=== PATIENT | female | born 1930 | race Caucasian/White ===

== ENCOUNTER 2020-10-13 10:30 | Emergency (ER) | payer OTHER ==
[~2020-10-13] VITALS: Ht 154.9 cm; Wt 61.2 kg
[2020-10-13] MEDS ORDERED: LEVO-T100 MCG PO (10:43)
[2020-10-13] MEDS ORDERED: ARICEPT10 M1 PO (10:43)
[2020-10-13] MEDS ORDERED: NORCO5 PO (12:41)
[2020-10-13 13:02] VITALS: BP 203/61
== END 2020-10-13 13:04 | disposition home or self-care (01) ==
LOC: M.ERS 10:30
DX: S32.028A Other fracture of second lumbar vertebra, initial encounter for closed fracture (principal); N83.201 Unspecified ovarian cyst, right side; E03.9 Hypothyroidism, unspecified; Z79.899 Other long term (current) drug therapy; W01.0XXA Fall on same level from slipping, tripping and stumbling without subsequent striking against object, initial encounter; Y93.E1 Activity, personal bathing and showering; Y92.89 Other specified places as the place of occurrence of the external cause; Y99.9 Unspecified external cause status

== ENCOUNTER → 2020-10-21 | Outpatient (CLI) | payer OTHER ==
[~2020-10-21] VITALS: Ht 154.9 cm; Wt 61.7 kg
[~2020-10-21] MED LIST: ALEVE220 M1 PO; ARICEPT10 M1 PO; CENTRAVITES 501 EAC1 PO; FISH OIL 1,001000 M3 PO; FOSAMAX 70 MG T70 MG PO; GARLIC OIL1000 MG PO; LEVO-T100 MCG PO; MEDROLDOSEPACK PO; NORCO5 PO; PERCOCET 7.5-31 EAC1 PO; PRINIVIL20 M1 PO; STOOL SOFTENER100 M1 PO; VITAMIN B-121000 MC2 SUBLING
== END ==
LOC: M.MRI 07:10
PROVIDERS: ATTEND Family Medicine
DX: M48.56XA Collapsed vertebra, not elsewhere classified, lumbar region, initial encounter for fracture (principal); M51.36 Other intervertebral disc degeneration, lumbar region; M48.061 Spinal stenosis, lumbar region without neurogenic claudication; M48.07 Spinal stenosis, lumbosacral region; X58.XXXD Exposure to other specified factors, subsequent encounter

== ENCOUNTER → 2020-10-30 | Outpatient (CLI) | payer OTHER | LOC: M.PC 08:24 | PROVIDERS: ATTEND Anesthesiology Pain Medicine | DX: S32.028D Other fracture of second lumbar vertebra, subsequent encounter for fracture with routine healing (principal); M19.90 Unspecified osteoarthritis, unspecified site; F32.9 Major depressive disorder, single episode, unspecified; E78.5 Hyperlipidemia, unspecified; I10 Essential (primary) hypertension; G47.00 Insomnia, unspecified; M54.42 Lumbago with sciatica, left side; N83.201 Unspecified ovarian cyst, right side; H91.90 Unspecified hearing loss, unspecified ear; X58.XXXD Exposure to other specified factors, subsequent encounter ==

== ENCOUNTER → 2020-11-27 | Outpatient (CLI) | payer OTHER | LOC: M.PC 08:21 | PROVIDERS: ATTEND Anesthesiology Pain Medicine | DX: M48.56XD Collapsed vertebra, not elsewhere classified, lumbar region, subsequent encounter for fracture with routine healing (principal); M19.90 Unspecified osteoarthritis, unspecified site; E78.5 Hyperlipidemia, unspecified; I10 Essential (primary) hypertension; G47.00 Insomnia, unspecified; M54.40 Lumbago with sciatica, unspecified side; N83.201 Unspecified ovarian cyst, right side; F32.9 Major depressive disorder, single episode, unspecified; X58.XXXD Exposure to other specified factors, subsequent encounter ==

== ENCOUNTER 2021-02-20 08:38 | Inpatient (IN) | payer OTHER ==
[~2021-02-20] VITALS: Ht 165.1 cm; Wt 55.9 kg
--- NOTE | ~2021-02-20 | CON ---
[address] [address] CONSULTATION Name: LISSETTE BURTON Claudia Room: [address] IN M.R.#: [id number] Admission: 02/20/21 Attend Phys: Nohelia Arora Discharge: 02/21/21 Date of : [birth year] Report #: [id number] THIS REPORT FOR: cc: Karla Moran Maggie M. DO [place], Roxane S. DO ~ DATE OF CONSULTATION: 02/21/2021 NEUROLOGY CONSULT HISTORY OF PRESENT ILLNESS: The patient is an 89-year-old female who came to the emergency room after an episode of staring out in space and generalized weakness. The patient had taken a shower and approximately 10 minutes later was putting her teeth in when she began to stare out and seemed generally weak. Her family grabbed her and laid her down. They did not check her blood pressure. Apparently, the patient has a history of dementia and is on donepezil 5 mg daily. Her daughter does not think the medication is helpful. Apparently, the patient has had an episode like this in the past and at that time was diagnosed with a urinary tract infection. Her daughter also states that her mother has a history of spinal stenosis, but her daughter is not sure where in the spine this is. Her mother has just come to live with her since 08/2020. PAST MEDICAL HISTORY: Hypothyroidism, hypertension, hyperlipidemia, arthritis, dementia. PAST SURGICAL HISTORY: Hysterectomy, rectocele repair x 2, rotator cuff repair, cholecystectomy. MEDICATIONS: At home, donepezil 5 mg daily, levothyroxine daily, multivitamin daily, fish oil daily, B12 daily, Colace 100 mg daily, lisinopril 20 mg daily, terbinafine 250 mg daily, oxycodone p.r.n., fluoxetine 20 mg daily. ALLERGIES: None. VITAL SIGNS: Temperature 36.9, pulse rate 60, respiratory rate 16, blood pressure 148/60, bedside pulse oximetry 96% on room air. LABORATORY DATA: Hematology: White blood cell count 6.8, hemoglobin 12.8, hematocrit 39.4, MCV 86.1, platelet count 323,000. Urinalysis: Nitrite positive, leukocyte esterase positive, many bacteria seen. Chemistry: Sodium 135, potassium 4.3, chloride 101, carbon dioxide 25, BUN 18, creatinine 0.8, GFR 68, glucose 101, calcium 8.7, total bilirubin 0.4, AST 16, ALT 23, alkaline phosphatase 58, total protein 7.6, albumin 3.8. Triglycerides 74, cholesterol 307, LDL cholesterol 106, HDL cholesterol 87. TSH 6.288, free T4 1.04[place] [address] CONSULTATION Name: LISSETTE BURTON Room: [address] IN [facility]#: [id number] Admission: 02/20/21 Attend Phys: Nohelia Arora Discharge: 02/21/21 Date of : [birth year] Report #: [id number] IMAGING: CT scan of the head demonstrates age-related findings including symmetric cerebral and cerebellar volume loss, atherosclerosis and chronic central white matter vascular disease. NEUROLOGIC: The patient thought it was 2020. She did not know where she was. I asked her how long she has been in the hospital because she remarked to me that she had "been there so long," but could not tell me. Cranial nerves 2-12 are grossly intact. Motor exam demonstrates symmetrical strength in the arms and legs. The patient was able to lift each leg high off the bed in a seated position. Reflexes trace. Plantar responses flexor. No dysmetria with [id number]. IMPRESSION: This patient has a history of dementia, most likely she has Alzheimer's disease, but she could also have microvascular dementia as well. I did recommend to her daughter that the dose of donepezil be increased to 10 mg daily, but I also think it would benefit the patient to see a neurologist and they would prefer to see someone locally, so I would recommend Dr. Roman. I explained to her daughter that whenever her mother has urinary tract infection, she may have these odd what seems like odd symptoms such as not being able to speak or being generally weak. I explained to her that her mother has a urinary tract infection now. Also, the patient has a history of spinal stenosis, but the patient has excellent strength in her legs. Again, I think it would be important for the patient to follow up with a neurologist as an outpatient to find out where the stenosis is and have it further evaluated. The electroencephalogram shows no evidence of seizure activity, not only that but this episode is not consistent with a seizure. I thank you for your kind referral. By: [id number] Hays DO /nt
[2021-02-20 08:39] VITALS: BP 163/58
[2021-02-20 09:00] LABS: ABSOLUTE EOSINOPHILS 0.2 thou/uL (0.0-0.7); ABSOLUTE LYMPHOCYTES 1.6 thou/uL (0.8-5.3); ABSOLUTE MONOCYTES 0.5 thou/uL (0.0-1.2); ABSOLUTE NEUTROPHILS 4.1 thou/uL (1.6-8.1); BASOPHILS 0.5 %; HEMATOCRIT 40.7 % (37.0-47.0); HEMOGLOBIN 13.6 gm/dL (12.0-15.0); LYMPHOCYTES 24.5 %; MCH 28.3 pg (26.0-34.0); MCHC 33.3 g/dL (28.0-37.0); MCV 85.1 fL (80.0-100.0); MONOCYTES 7.9 %; MPV 7.3 fl. (7.2-11.1); NUCLEATED RBCS 0 /100WBC; PLATELET COUNT* 334 thou/uL (150-400); POLYS 64.1 %; RBC 4.79 mil/uL (4.20-5.00); RDW-CV 16.4 % (10.5-14.5); WBC 6.4 thou/uL (4.0-11.0)
[2021-02-20 09:09] LABS: URINE BILIRUBIN NEGATIVE (Negative); URINE BLOOD NEGATIVE (Negative); URINE CLARITY CLEAR; URINE COLOR YELLOW; URINE GLUCOSE-RANDOM NEGATIVE (Negative); URINE KETONES NEGATIVE (Negative); URINE LEUKOCYTES-REFLEX TRACE (Negative); URINE PROTEIN NEGATIVE (Negative); URINE SPECIFIC GRAVITY 1.015 (1.005-1.030); URINE UROBILINOGEN 0.2 E.U./dl (0.2-1.0)
[2021-02-20 09:10] LABS: URINE NITRITE-REFLEX POSITIVE (Negative)
[2021-02-20 09:18] LABS: BACTERIA-REFLEX >30 Many /HPF (None Seen); CASTS None Seen /LPF (None Seen); CRYSTALS None Seen /LPF (None Seen); MUCUS None Seen strn/LPF (None Seen); SQUAMOUS 4-10 Moderate /LPF (0-3); URINE RBC 0-2 Rare /HPF (0-2); URINE WBC-REFLEX 0-5 Rare /HPF (0-5)
[2021-02-20 09:43] LABS: CALCIUM 9.1 mg/dL (8.5-10.1); CREATININE 0.9 mg/dL (0.6-1.3); POTASSIUM 4.2 mmol/L (3.5-5.1)
[2021-02-20 09:48] LABS: ALBUMIN 3.8 g/dL (3.4-5.0); TOTAL BILIRUBIN 0.4 mg/dL (<0.1-1.0); TOTAL PROTEIN 7.6 g/dL (6.4-8.2)
[2021-02-20 14:30] VITALS: BP 142/70
--- NOTE | 2021-02-20 14:38 | EKG ---
[place] [address] ELECTROCARDIOGRAM REPORT Name: LUIZAEvetteLISSETTE J Room: [place] [address] [facility].#: [id number] Admission: 02/20/21 Attend Phys: Thad Ellison Discharge: Date of : [birth year] Date of Service: 02/20/21 0839 Report #: [id number] THIS REPORT FOR: //name// [facility] ED Test Date: 2021-02-20 Test Time: 08:39:57 Pat Name: LISSETTE BURTON Department: Room: [facility] Gender: F Cafeteria Server: CD : 1930 Requested By: Warren Gong Order Number: [id number] MD: Hawk Vigil Measurements Intervals [place] Rate: 51 P: 67 WV: 170 QRS: -42 QRSD: 136 T: 16 QT: 491 QTc: 453 Interpretive Statements Sinus rhythm RBBB and LAFB No previous ECG available for comparison Electronically Signed On 02-20-2021 14:38:03 CDT by Hawk Vigil [email or web address] <ELECTRONICALLY SIGNED> By: Hawk Vigil MD, [facility] 02/20/21 1438 0839 0839 Hawk Vigil MD, [facility] /EPI
[2021-02-20 15:16] VITALS: BP 142/70
[2021-02-20 15:20] VITALS: BP 142/70
[2021-02-20] MEDS ORDERED: TERBINAFINE HC250 MG PO (15:56)
[2021-02-20] MEDS ORDERED: PERCOCET 7.5-31 EAC1 PO (15:57)
[2021-02-20] MEDS ORDERED: PROZAC20 M1 PO (15:58)
[2021-02-20] MEDS ORDERED: VITAMIN B-121000 MC2 PO (15:58)
[2021-02-20] MEDS ORDERED: B COMPLEX1 EACH PO (15:59)
[2021-02-20] MEDS ORDERED: COLACE100 MG PO (15:59)
[2021-02-20] MEDS ORDERED: ARICEPT10 M1 PO (16:00)
[2021-02-20] MEDS ORDERED: FISH OIL 1,0001 EAC9 PO (16:00)
[2021-02-20] MEDS ORDERED: LEVO-T100 MCG PO (16:00)
[2021-02-20] MEDS ORDERED: CALTRATE 600+D1 EAC1 PO (16:01)
--- NOTE | 2021-02-20 17:43 | NUR ---
pts daughter wants DNR. Dr garcia, covering for dr edward, paged at this time.
[2021-02-20 20:00] VITALS: BP 108/37
[2021-02-21] VITALS: BP 124/65
--- NOTE | 2021-02-21 03:54 | NUR ---
PT ALERT ORIENTED TO SELF PLEASANT. DTR SAYS PT IS BACK TO HER NORMAL SELF. UP TO BR WITH DTR WHO IS SPENDING THE NIGHT WITH PT. [employer] TR[employer]ING [employer]. DENIES PAIN.
[2021-02-21 04:00] VITALS: BP 130/90
[2021-02-21 07:38] LABS: ABSOLUTE EOSINOPHILS 0.2 thou/uL (0.0-0.7); ABSOLUTE LYMPHOCYTES 1.9 thou/uL (0.8-5.3); ABSOLUTE MONOCYTES 0.6 thou/uL (0.0-1.2); ABSOLUTE NEUTROPHILS 4.2 thou/uL (1.6-8.1); BASOPHILS 0.6 %; EOSINOPHILS 2.6 %; HEMATOCRIT 39.4 % (37.0-47.0); HEMOGLOBIN 12.8 gm/dL (12.0-15.0); LYMPHOCYTES 27.3 %; MCHC 32.6 g/dL (28.0-37.0); MCV 86.1 fL (80.0-100.0); MONOCYTES 8.5 %; MPV 7.6 fl. (7.2-11.1); NUCLEATED RBCS 0 /100WBC; PLATELET COUNT* 323 thou/uL (150-400); RBC 4.58 mil/uL (4.20-5.00); RDW-CV 16.5 % (10.5-14.5); WBC 6.8 thou/uL (4.0-11.0)
[2021-02-21 07:50] LABS: ANION GAP 9 mmol/L (7-16); BUN 18 mg/dL (7-18); CALCIUM 8.7 mg/dL (8.5-10.1); CHLORIDE 101 mmol/L (98-107); CHOLESTEROL 207 mg/dL (<200); CO2 25 mmol/L (21-32); CREATININE 0.8 mg/dL (0.6-1.3); GLUCOSE 101 mg/dL (70-99); HDL CHOLESTEROL 87 mg/dL (>40); LDL CHOLESTEROL 106 mg/dL (<100); POTASSIUM 4.3 mmol/L (3.5-5.1); SODIUM 135 mmol/L (136-145); TC:HDL 2.4 Ratio (Not establshd); TRIGLYCERIDE 74 mg/dL (<150); VLDL 15 mg/dL (<40)
[2021-02-21 08:10] VITALS: BP 148/60
[2021-02-21 08:20] LABS: SERUM ASSESSMENT Clear
--- NOTE | 2021-02-21 10:58 | NUR ---
Assumed care at 0730. Pt is alert and oriented to self only. Daughter at the bed side. Assessment done and charted. Pt has good strength in the upper and lower extremities. All test ordered are done. Pt had breakfast with no difficulty. Will continue to provide care to patient.
[2021-02-21 12:00] VITALS: BP 134/78
[2021-02-21] MEDS ORDERED: LEVOFLOXACIN500 MG PO (13:04)
[2021-02-21 13:11] VITALS: BP 134/78
[2021-02-21 13:48] VITALS: BP 134/78
== END 2021-02-21 13:25 | disposition home or self-care (01) | DRG 689 ==
LOC: M.ERS 08:38 → M.TBA-ER 10:30 → M.2W 15:30
PROVIDERS: Family Medicine; ADMIT Internal Medicine; ATTEND Internal Medicine
DX: N39.0 Urinary tract infection, site not specified (principal); G93.41 Metabolic encephalopathy; E03.9 Hypothyroidism, unspecified; E78.00 Pure hypercholesterolemia, unspecified; G47.00 Insomnia, unspecified; Z20.822 Contact with and (suspected) exposure to COVID-19; F03.90 Unspecified dementia, unspecified severity, without behavioral disturbance, psychotic disturbance, mood disturbance, and anxiety; E78.5 Hyperlipidemia, unspecified; Z98.42 Cataract extraction status, left eye; Z98.41 Cataract extraction status, right eye; Z90.49 Acquired absence of other specified parts of digestive tract; Z90.710 Acquired absence of both cervix and uterus